=== PATIENT | female | born 1990 | race Caucasian/White ===

== ENCOUNTER 2016-10-05 22:47 | Emergency (ER) | payer OTHER ==
--- NOTE | ~2016-10-05 | CT2 ---
[facility] A Service of [facility] RADIOLOGY TEXT RESULTS PATIENT: BLANCA TURNER LOCATION: SED : [birth year] UNIT #: [id number] AGE: [address]: JAY PRAJAPATI SEX: F ORDER DR: [id number] [place] [id number] E MR#: [id number] Acc #: [id number] NAME: BLANCA TURNER : 1990 SEX: F STUDY DATE/TIME: 10/06/2016 0:05 UNIT: SED ROOM: STUDY DESCRIPTION: CT Abd and Pelv W Cont Attending Physician: Jay Prajapati Primary Care Physician: Primary Care Physician No MEDICAL IMAGING REPORT This report is preliminary unless electronic signature is present. EXAM CT abdomen and pelvis with contrast, 10/06/2016 HISTORY 25-year-old female in the ED complaining of 10-day history of epigastric pain and nausea, greatest after meals. TECHNIQUE CT examination of the abdomen and pelvis was performed with IV contrast. GI contrast material was not ordered. This CT examination was performed with one or more of the following radiation dose reduction techniques: automatic exposure control, adjustment of mA and/or kV according to patient size, and iterative reconstruction. FINDINGS ABDOMEN: Nondistended gallbladder. No bile duct dilatation. Mild diffuse hepatic steatosis. Liver, pancreas and spleen are otherwise normal in size and appearance. Mild, multifocal chronic parenchymal scarring is scattered throughout the left kidney. Both kidneys are otherwise negative, there is no evidence of urinary obstruction. Small bowel and colon are normal in caliber and appearance without GI contrast. The appendix is normal. Normal-caliber abdominal aorta. PELVIS: Small exophytic fibroid arising from the surface of the upper uterine fundus on the left containing a small calcification. Uterus, ovaries, bladder and rectum are otherwise negative. No inguinal hernia. Limited lung base images show no active disease in the lower chest. IMPRESSION 1. No acute abnormality within the abdomen or pelvis. [facility] A Service of [facility] RADIOLOGY TEXT RESULTS PATIENT: JOHNNY,BLANCA LOCATION: SED : 92 UNIT #: [id number] AGE: [address]: JAY PRAJAPATI SEX: F ORDER DR: 2. Mild diffuse hepatic steatosis. 3. Mild multifocal chronic renal parenchymal scarring scattered throughout the left kidney. No evidence of urinary obstruction. 4. Tiny benign-appearing fibroid arising from the surface of the upper uterine fundus on the left. 5. The appendix is normal. Dictated by... Amos Sadler M.D. THIS IS AN ELECTRONICALLY VERIFIED REPORT Amos Sadler M.D. at 10/06/2016 9:58 PM AYSE/ivana TD: 10/06/2016 12:07 JOB #: [id number] MEDICAL IMAGING REPORT
[~2016-10-05 22:47] MED LIST: AMOXICILLIN875 MG PO; BACTRIM DS TABL1 TA1; BACTRIM DS TABL1 TAB PO; CIPROFLOXACIN500 M1 PO; DICLOFENAC PO; IBUPROFEN400 MG PO; NAPROSYN250 M1 PO; NO MEDICATIONS; PHENERGAN25 MG PO; ROBITUSSIN A-C-S1 ML DOB; TYLENOL #3 PO
[2016-10-05 23:11] LABS: URINE SOURCE CLEAN CATCH
[2016-10-05 23:14] LABS: MICRO INDICATED? YES; URINE APPEARANCE CLEAR; URINE BILIRUBIN NEG (NEG); URINE BLOOD TRACE-INTACT (NEG); URINE COLOR YELLOW; URINE GLUCOSE NEG (NORM); URINE KETONE NEG (NEG); URINE LEUKOCYTE ESTERASE NEG (NEG); URINE NITRATE NEG (NEG); URINE PROTEIN 1+ (NEG); URINE UROBILINOGEN 0.2 MG/DL (NORM)
[2016-10-05 23:16] LABS: BASOPHIL% 0.2 % (0-2.5); DIFF IND NO; EOSINOPHIL# 0.1 X10e3 (0-0.7); EOSINOPHIL% 0.5 % (0.0-7.0); HEMATOCRIT 44.6 % (35.0-45.0); HEMOGLOBIN 14.9 gm/dL (12.0-16.0); LYMPHOCYTE# 2.9 X10e3 (1.0-3.5); LYMPHOCYTE% 28.5 % (17.0-45.0); MEAN CELL VOLUME 87.6 FL (83-96); MEAN CORPUSCULAR HEMOGLOBIN 29.3 PG (28-34); MEAN CORPUSCULAR HGB CONC 33.4 g/dL (30-36); MEAN PLATELET VOLUME 8.7 FL (6.5-11.5); MONOCYTE# 0.7 X10e3 (0-1.0); MONOCYTE% 6.4 % (3.0-12.0); NEUTROPHIL# 6.5 X10e3 (1.5-7.1); NEUTROPHIL% 64.4 % (40-75); PLATELET COUNT 340 X10e3 (140-420); RED CELL DISTRIBUTION WIDTH 12.5 % (11.0-15.5); WHITE BLOOD COUNT 10.2 X10e3 (4.0-10.5)
[2016-10-05 23:17] LABS: CULTURE INDICATED? NO; URINE BACTERIA NEG (NEG); URINE SQUAMOUS EPITHELIAL CELL OCCAS /[HPF]
[2016-10-05 23:18] LABS: URINE MUCUS PRESENT
[2016-10-05 23:30] LABS: ALBUMIN SERUM 4.6 g/dL (3.5-5.0); ALKALINE PHOSPHATASE 47 U/L (32-92); ALT (SGPT) 20 U/L (10-40); AMYLASE 20 U/L (0-46); AST (SGOT) 19 U/L (10-42); BILIRUBIN,TOTAL 0.4 mg/dL (0.2-2.0); BLOOD UREA NITROGEN 11 mg/dL (9-23); BUN/CREATININE RATIO 15.71; CALCIUM SERUM 9.6 mg/dL (8.4-10.2); CARBON DIOXIDE 28 mmol/L (22-31); CHLORIDE 101 mmol/L (100-111); CREATININE SERUM 0.7 mg/dL (0.6-1.4); GLOM FILT RATE Estimated ABOVE60 mL/min (>60); GLUCOSE FASTING 82 mg/dL (70-110); LIPASE 22 U/L (22-51); POTASSIUM 3.6 mmol/L (3.5-5.1); PROTEIN TOTAL SERUM 8.2 g/dL (6.0-8.3); SODIUM 135 mmol/L (135-145)
[2016-10-05 23:32] LABS: BILIRUBIN, DIRECT <0.1 mg/dL (0.0-0.2); BILIRUBIN,INDIRECT 0.3 mg/dL (0.0-0.9)
== END 2016-10-06 01:12 | disposition home or self-care (01) ==
LOC: SED 22:47
PROVIDERS: Physician Assistant
DX: R10.9 Unspecified abdominal pain (principal); R11.2 Nausea with vomiting, unspecified; F41.9 Anxiety disorder, unspecified; F32.9 Major depressive disorder, single episode, unspecified
CPT/HCPCS: 36415; 74177; 80048; 80076; 81003; 82150; 83690; 84703; 85025; 99284; J2405; Q9967

== ENCOUNTER 2017-03-22 00:23 | Emergency (ER) | payer SELFPAY ==
[~2017-03-22] VITALS: Ht 167.6 cm; Wt 81.6 kg
== END 2017-03-22 02:05 | disposition home or self-care (01) ==
LOC: SED 00:23
DX: K59.00 Constipation, unspecified (principal); R11.0 Nausea
CPT/HCPCS: 84703; 99284